=== PATIENT | female | born 1990 | race Caucasian/White ===

== ENCOUNTER 2020-12-20 13:16 | Emergency (ER) | payer OTHER ==
[~2020-12-20] VITALS: Ht 157.5 cm; Wt 64.4 kg
[2020-12-20 13:25] VITALS: BP 115/67
[2020-12-22 06:07] LABS: HEPATITIS B SURFACE ANTIGEN Negative (Negative)
== END 2020-12-20 13:49 | disposition home or self-care (01) ==
LOC: MED 13:16
DX: S61.244A Puncture wound with foreign body of right ring finger without damage to nail, initial encounter (principal); W46.1XXA Contact with contaminated hypodermic needle, initial encounter; Y93.89 Activity, other specified; Y92.89 Other specified places as the place of occurrence of the external cause; Y99.8 Other external cause status
CPT/HCPCS: 36415; 86592; 86702; 86803; 87340; 99283

== ENCOUNTER 2021-05-12 14:49 | Inpatient (IN) | payer OTHER ==
[~2021-05-12] VITALS: Ht 157.5 cm; Wt 55.3 kg
[2021-05-12 15:01] VITALS: BP 126/65
[2021-05-12] MEDS ORDERED: MORPHINE SULFATE 4 MG/ML SYR IVP ONE ×2 (15:10→17:10)
--- NOTE | 2021-05-12 15:37 | NUR ---
CT consent form signed
--- NOTE | 2021-05-12 15:40 | NUR ---
patient ambulated to bed 04 with steady/even gait.
--- NOTE | 2021-05-12 15:40 | NUR ---
31 y/o F BIB self from home with c/c low abdominal pain since 5. Patient A&Ox4, ambulatory, reports acute onset of low pelvic pain while at rest. Patient reports 8/10, shooting/constant, that started from left side and radiates to right. Patient states Tylenol 1000mg 2 hours ago with minor relief. Patient also states nausea. Denies vomiting, fever/chills, SOB, back pain, trauma, injury, illness in household. Last BM: yesterday. LMP: 05/06/2021. UA collected at bedside. Bed locked in lowest position, side rails x 1, call light in reach. PMH: OVARIAN CYSTS MEDS: PROVERA NKA
[2021-05-12] MEDS ORDERED: ONDANSETRON 4 MG/2 ML VIAL ONE (15:47)
[2021-05-12] MEDS ORDERED: ONDANSETRON 4 MG/2 ML VIAL IVP ONE ×2 (15:50→16:50)
--- NOTE | 2021-05-12 15:57 | NUR ---
UA and blood sample collected, handed to CPT Taisha at ER bedside.
[2021-05-12 16:19] LABS: BASOPHILS % (AUTO) 0.1 % (0.0-2.0); EOSINOPHILS % (AUTO) 0.3 % (0.0-4.0); HEMATOCRIT 40.5 % (36-48); HEMOGLOBIN 13.3 g/dL (12.0-16.0); LYMPHOCYTES # (AUTO) 1.3 K/uL (2.5-16.5); LYMPHOCYTES % (AUTO) 9.7 % (20.5-51.1); MEAN CORPUSCULAR HEMOGLOBIN 31 pg (27-31); MEAN CORPUSCULAR HGB CONC 33 g/dL (33-37); MEAN CORPUSCULAR VOLUME 93.1 fL (80-94); MONOCYTES # (AUTO) 0.8 K/uL (0.8-1.0); MONOCYTES % (AUTO) 5.9 % (1.7-9.3); NEUTROPHILS # (AUTO) 11.3 K/uL (1.8-7.7); PLATELET COUNT (AUTO) 297 K/uL (140-450); RED BLOOD CELL COUNT(AUTO) 4.35 MIL/uL (4.20-5.40); RED CELL DISTRIBUTION WIDTH 12.8 % (11.6-13.7); WHITE BLOOD COUNT (AUTO) 13.5 K/uL (4.8-10.8)
[2021-05-12 16:44] LABS: ALBUMIN 4.5 g/dL (3.4-5.0); ANION GAP 9.6 (8-16); CARBON DIOXIDE 30.8 mmol/L (21-32); CREATININE 0.9 mg/dL (0.6-1.3); POTASSIUM 3.4 mmol/L (3.5-5.1); TOTAL BILIRUBIN 0.6 mg/dL (0.0-1.0)
--- NOTE | 2021-05-12 18:46 | NUR ---
ULTRASOUND AT BEDSIDE
[2021-05-12] MEDS ORDERED: HYDROmorphone PFS 2 MG/ML SYR IVP ONE (18:50)
[2021-05-12] MEDS ORDERED: METOCLOPRAMIDE 10 MG/2 ML INJ VIAL ONE (19:04)
[2021-05-12] MEDS ORDERED: METOCLOPRAMIDE 10 MG/2 ML INJ VIAL IVP ONE (19:10)
--- NOTE | 2021-05-12 19:30 | NUR ---
GAVE REPORT TO EDDY LOCKHART. TRANSFER OF CARE AT THIS TIME.
[2021-05-12] MEDS ORDERED: KETOROLAC 15 MG/ML VIAL IVP PRN (19:45)
[2021-05-12] MEDS ORDERED: ONDANSETRON 4 MG/2 ML VIAL IVP SCH (20:00)
[2021-05-12] MEDS: DEXT 5% / NACL 0.9% 1,000 ML IV SCH (20:12)
[2021-05-12] MEDS: BISMUTH SUBSALICYLATE 15 ML UDBTL PO SCH (21:00)
[2021-05-12] MEDS ORDERED: guaiFENesin DM 200/20 MG-10 ML 10 ML UDC PO PRN (21:00)
[2021-05-12] MEDS ORDERED: ACETAMINOPHEN 325 MG TAB PO PRN (21:00)
[2021-05-12] MEDS ORDERED: ZOLPIDEM 5 MG TAB PO PRN (21:00)
[2021-05-12] MEDS ORDERED: ONDANSETRON 4 MG/2 ML VIAL IM/IVP PRN (21:00)
[2021-05-12] MEDS ORDERED: POTASSIUM CHLORIDE 10 MEQ TABER PO PRN (21:00)
[2021-05-12] MEDS ORDERED: DOCUSATE SODIUM 100 MG GELCAP PO PRN (21:00)
[2021-05-12] MEDS ORDERED: HYDROcodone/APAP 7.5/325 MG 1 TAB PO PRN (21:00)
[2021-05-12] MEDS ORDERED: LEVOFLOXACIN 750 MG/D5W PREMIX 150 ML IV SCH (21:05)
[2021-05-12 21:22] LABS: APPEARANCE,URINE CLOUDY (CLEAR); BILIRUBIN,URINE 1+ (NEGATIVE); BLOOD, URINE 1+ (NEGATIVE); COLOR,URINE ORANGE (YELLOW); LEUKOCYTE ESTERASE ,URINE NEGATIVE (NEGATIVE); NITRITE, URINE NEGATIVE (NEGATIVE); UGLUCOSE NEGATIVE (NEGATIVE)
--- NOTE | 2021-05-12 21:23 | NUR ---
X-Ray at bedside.
[2021-05-12 21:49] LABS: URINE AMORPHOUS URATE 3+ /HPF (None Seen); WBC,URINE 0-5 /HPF (0-5)
[2021-05-12] MEDS: DICYCLOMINE HCL LIQUID 10 MG/5 ML UDC PO SCH (22:24)
--- NOTE | 2021-05-12 22:30 | NUR ---
Christina sharp in [facility] - 05/13/21 at 0006 by MEDADINA medicated as per michael tobias MD
--- NOTE | 2021-05-12 22:30 | NUR ---
medicated as per admiting MD, tolerated well.
[2021-05-12 22:57] LABS: AMYLASE 57 U/L (25-115); HDL CHOLESTEROL 59 mg/dL (40-60); PHOSPHORUS 2.8 mg/dL (2.5-4.9); THYROID STIMULATING HORMONE 0.95 uIU/mL (0.34-3.74); TRIGLYCERIDES 66 mg/dL (30-150)
[2021-05-12 23:26] LABS: CHOL/HDL RATIO 3.3 (1-4.5); LDL (CALC) 121 mg/dL (60-100)
--- NOTE | 2021-05-13 00:07 | NUR ---
Patient appears to be resting comfortably in bed. Vital Signs within normal limits. Respirations even and unlabored.
--- NOTE | 2021-05-13 00:50 | NUR ---
complained of nausea vomiting prn meds given.
--- NOTE | 2021-05-13 04:58 | NUR ---
Patient resting comfortably in bed. Vital Signs within normal limits. .
[2021-05-13] MEDS: DEXT 5% / NACL 0.9% 1,000 ML IV SCH (06:19)
[2021-05-13 06:47] LABS: BASOPHILS % (AUTO) 0.1 % (0.0-2.0); HEMATOCRIT 34.2 % (36-48); HEMOGLOBIN 11.4 g/dL (12.0-16.0); LYMPHOCYTES # (AUTO) 0.6 K/uL (2.5-16.5); MEAN CORPUSCULAR HEMOGLOBIN 31 pg (27-31); MEAN CORPUSCULAR HGB CONC 33 g/dL (33-37); MEAN CORPUSCULAR VOLUME 91.7 fL (80-94); MONOCYTES # (AUTO) 0.6 K/uL (0.8-1.0); MONOCYTES % (AUTO) 4.7 % (1.7-9.3); NEUTROPHILS # (AUTO) 11.4 K/uL (1.8-7.7); NEUTROPHILS % (AUTO) 90.2 % (42.2-75.2); PLATELET COUNT (AUTO) 243 K/uL (140-450); RED BLOOD CELL COUNT(AUTO) 3.73 MIL/uL (4.20-5.40); RED CELL DISTRIBUTION WIDTH 12.6 % (11.6-13.7); WHITE BLOOD COUNT (AUTO) 12.6 K/uL (4.8-10.8)
[2021-05-13 07:08] LABS: ANION GAP 12.3 (8-16); CARBON DIOXIDE 26.7 mmol/L (21-32); CREATININE 0.8 mg/dL (0.6-1.3)
--- NOTE | 2021-05-13 07:12 | NUR ---
REPORT GIVEN TO KELLEE FOR CONTINUITY OF CARE
--- NOTE | 2021-05-13 07:22 | NUR ---
REPORT RECIEVED FROM EDDY LOCKHART. TRANSFER OF CARE RECIEVED
[2021-05-13] MEDS ORDERED: PANTOPRAZOLE 40 MG TABEC PO SCH (09:00)
[2021-05-13] MEDS: BISMUTH SUBSALICYLATE 15 ML UDBTL PO SCH (09:00)
[2021-05-13] MEDS ORDERED: TRAM50TA3 PO (09:22)
[2021-05-13] MEDS ORDERED: LEVO750T51 PO (09:22)
[2021-05-13] MEDS ORDERED: ONDA4TAB PO (09:22)
[2021-05-13] MEDS ORDERED: IBUP-2213 PO (09:22)
[2021-05-13] MEDS: DICYCLOMINE HCL LIQUID 10 MG/5 ML UDC PO SCH (09:24)
[2021-05-13 10:04] VITALS: BP 96/60
--- NOTE | 2021-05-13 10:05 | NUR ---
Patient discharged with v/s stable. Written and verbal after care instructions given and explained. Patient alert, oriented and verbalized understanding of instructions. Ambulatory with steady gait. All questions addressed prior to discharge. ID band removed. Patient advised to follow up with PMD. Rx of IBUPFOREN, LEVOFALXCIN, ZOFRAN, AND TRAMADOL given. Patient educated on indication of medication including possible reaction and side effects. Opportunity to ask questions provided and answered.
[2021-05-14 12:10] LABS: T4 (THYROXINE) 8.7 ug/dL (4.5-12.0)
== END 2021-05-13 11:16 | disposition home or self-care (01) | DRG 872 ==
LOC: MED 14:49 → MTU 19:49
PROVIDERS: ADMIT Family Medicine; ATTEND Family Medicine
DX: A41.9 Sepsis, unspecified organism (principal); E28.2 Polycystic ovarian syndrome; E78.5 Hyperlipidemia, unspecified; E86.0 Dehydration; E87.6 Hypokalemia; N70.92 Oophoritis, unspecified; Z85.41 Personal history of malignant neoplasm of cervix uteri
CPT/HCPCS: 36415; 71045; 76830; 80048; 80053; 81001; 81025; 82150; 83036; 83690; 83735; 83880; 84100; 84436; 84439; 84443; 84479; 84484; 85025; 85610; 85730; 96374; 96375; 96376; 99285; J1170; J1956; J2270; J2405; J2765; Q0092; Q9967

== ENCOUNTER 2021-12-04 07:13 | Emergency (ER) | payer OTHER ==
[~2021-12-04] VITALS: Ht 157.5 cm; Wt 62.1 kg
[~2021-12-04 07:13] MED LIST: IBUP-2213 PO; LEVO750T51 PO; ONDA4TAB PO; TRAM50TA3 PO
[2021-12-04 07:21] VITALS: BP 119/88
--- NOTE | 2021-12-04 07:24 | NUR ---
PT AMB TO BED 8.
[2021-12-04] MEDS ORDERED: ONDANSETRON 4 MG ODT PO ONE (07:25)
[2021-12-04] MEDS ORDERED: KETOROLAC 60 MG/2 ML VIAL IM ONE (07:25)
[2021-12-04] MEDS ORDERED: KETOROLAC 30 MG/ML VIAL IVP ONE (07:30)
[2021-12-04] MEDS ORDERED: NACL 0.9% 1,000 ML IV ONE (07:30)
[2021-12-04] MEDS ORDERED: DICYCLOMINE HCL LIQUID 20 MG, ALUMINUM HYD/MAG/SIMETHICONE 30 ML, LIDOCAINE VISCOUS 2% ... PO ONE ×3 (07:30)
[2021-12-04] MEDS ORDERED: ONDANSETRON 4 MG/2 ML VIAL IVP ONE (07:30)
--- NOTE | 2021-12-04 07:30 | NUR ---
18G IV ESTABLISHED IN R AC. CONVERTED TO SALINE LOCK
--- NOTE | 2021-12-04 07:30 | NUR ---
Christina sharp in ED - 12/04/21 at 0747 by [email or web address] 218G IV ESTABLISHED IN R AC. CONVERTED TO SALINE LOCK
[2021-12-04] MEDS ORDERED: ALUMINUM HYD/MAG/SIMETHICONE 30 ML UDC ONE (07:35)
[2021-12-04] MEDS ORDERED: DICYCLOMINE HCL LIQUID 10 MG/5 ML UDC ONE (07:35)
--- NOTE | 2021-12-04 07:46 | NUR ---
PATIENT PRESENTS TO ED WITH ABD PAIN. PT STATES SHE STARTED TO EXPERIENCE N/V AND ABDOMINAL PAIN SINCE YESTERDAY. PER PATIENT SHE STARTED TO EXPERINCE THE ABDOMINAL PAIN AFTER EATING LUNCH YESTERDAY. SKIN IS PINK/WARM/DRY; AAOX4 WITH EVEN AND STEADY GAIT; LUNGS CLEAR BL; HR EVEN AND REGULAR; PT DENIES ANY FEVER, CP, SOB, OR COUGH AT THIS TIME; PATIENT STATES PAIN OF 10/10 AT THIS TIME AND IS CRAMPING LIKE PAIN; VSS; PATIENT POSITIONED FOR COMFORT; HOB ELEVATED; BEDRAILS UP X2; BED DOWN. ER MD MADE AWARE OF PT STATUS. PMH: OVARIAN CYSTS NKA
--- NOTE | 2021-12-04 07:49 | NUR ---
DR. EVERETT BEDSIDE EVALUATING PT
[2021-12-04] MEDS ORDERED: ONDA8TAB87 PO (07:51)
[2021-12-04 08:25] VITALS: BP 119/88
== END 2021-12-04 08:25 | disposition home or self-care (01) ==
LOC: MED 07:13
DX: R10.30 Lower abdominal pain, unspecified (principal); R11.2 Nausea with vomiting, unspecified; R19.7 Diarrhea, unspecified; Z79.899 Other long term (current) drug therapy
CPT/HCPCS: 96361; 96374; 99283; J2405; J7030